=== PATIENT | male | born 1935 | race Caucasian/White ===

== ENCOUNTER 2016-06-14 21:08 | Inpatient (IN) | payer OTHER ==
[~2016-06-14] VITALS: Ht 162.6 cm; Wt 79.4 kg
--- NOTE | 2016-06-14 21:19 | NUR ---
Informed waiting has been performed.
--- NOTE | 2016-06-14 21:19 | NUR ---
TRIAGE: PT TO ER WITH AND SON C/C L ARM PAIN X 1 HR. PT WITH HX DEMENTIA. ANSWERS MOST QUESTIONS. STATES HE WAS TRYING TO GET INTO BED WHEN THE PAIN STARTED. PT REQUIRED ASSISTANCE GETTING OUT OF CAR INTO W/C. PT WAS INCONTINENT OF URINE IN HOUSE PRIOR TO LEAVING, STATES "THAT HAPPENS LATELY". SON WAS CONCERNED ABOUT PATIENT HAVING A STROKE. HAND GRASP EQUAL, SMILE EQUAL. PT COMPLAINS ONLY OF L SHOULDER PAIN. PT IS SQUIRMING AND MOANING IN TRIAGE CHAIR.
--- NOTE | 2016-06-14 21:28 | ED UPPER/LOWER EXTREMITY COMPL ---
History of Present Illness General Chief Complaint: General Adult Stated Complaint: PT LEFT ARM IS HAVING PAIN Source: patient, family, old records Exam Limitations: dementia Vital Signs & Intake/Output Vital Signs & Intake/Output Vital Signs Date Time Temp Pulse Resp B/P Pulse O2 O2 Flow FiO2 Ox Delivery Rate 06/15 0018 116 18 134/82 95 Room Air 06/14 2333 97.9 107 18 131/75 96 Room Air 06/14 2113 97.9 103 24 139/85 96 Room Air ED Intake and Output 06/15 0000 06/14 1200 Intake Total 0 Output Total Balance 0 Intake, Oral 0 Patient 175 lb Weight Allergies Coded Allergies: No Known Allergies (06/14/16) Triage Note: TRIAGE: PT TO ER WITH AND SON C/C L ARM PAIN X 1 HR. PT WITH HX DEMENTIA. ANSWERS MOST QUESTIONS. STATES HE WAS TRYING TO GET INTO BED WHEN THE PAIN STARTED. PT REQUIRED ASSISTANCE GETTING OUT OF CAR INTO W/C. PT WAS INCONTINENT OF URINE IN HOUSE PRIOR TO LEAVING, STATES "THAT HAPPENS LATELY". SON WAS CONCERNED ABOUT PATIENT HAVING A STROKE. HAND GRASP EQUAL, SMILE EQUAL. PT COMPLAINS ONLY OF L SHOULDER PAIN. PT IS SQUIRMING AND MOANING IN TRIAGE CHAIR. Triage Nurses Notes Reviewed? yes Onset: Abrupt Duration: hour(s): (1), constant Timing: recent history Severity: moderate Severity Numbers: 6 Pain/Injury Location: Left: Shoulder. Method of Injury: unknown Modifying Factors: Improves With: rest. Worsens With: movement. Associated Symptoms: none HPI: 81-year-old male with history of dementia hypertension presents to emergency room with family planning of left shoulder pain that is worse with movement for the past 1 hour. The family denies any known specific injury or trauma. They state that he has appeared lightheaded today on arrival the patient is complaining of pain however is not taken anything for his symptoms. They deny noting any rashes to his skin or swelling to his arm. He denies any neck back chest or abdominal pain no shortness of breath. No history of similar symptoms in the past. He denies any elbow wrist or hand pain no difficulty with range of motion of his elbow wrist or hand. There is been no change in his mental status. (KAY HULL,CINDY) Past History Travel History Traveled to [place] past 21 day No Medical History Any Pertinent Medical History? 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 No (CINDY STOCK) Review of Systems Review of Systems Constitutional: Reports: see HPI. All Other Systems: Reviewed and Negative Comments Review of systems: See HPI, All other systems negative. Constitutional, no chills no fever, no malaise HEENT: no sore throat no congestion Cardiovascular: No chest pain , no palpitation Skin, no rashes, no change in skin Respiratory: No dyspnea no cough no sputum GI: No nausea no vomiting, no diarrhea, : No dysuria No hematuria, no frequency, no discharge Muscle skeletal: joint pain, no joint swelling, no back pain Neurologic: No numbness no headache Psych: No stress no anxiety no depression,. Heme/endocrine: No bruising no bleeding Immunology: No lymphadenopathy (CINDY STOCK) Physical Exam Physical Exam General Appearance: well developed/nourished, alert, anxious Comments: Well-developed well-nourished person in no acute distress HEENT: Normal EENT exam; PERRL, EOMI. HEAD is atraumatic. moist mucous membranes. Neck: Supple, no lymphadenopathy, normal range of motion Back: Nontender, no CVA tenderness. Full range of motion Cardiovascular: Irregular rate and rhythm no murmurs rubs Respiratory: Chest nontender.There were no bony deformities, no asymmetry. No respiratory distress. Patient speaking in full complete sentences. Breath sounds clear to auscultation bilaterally: NO W/R/R Abdomen: Soft, nontender nondistended, no appreciable organomegaly. Normal bowel sounds. No rebound/guarding, No appreciable enlargement of the abdominal aorta, No ascites. Rectal: Nontender. Heme negative stool. No mass/hemorrhoid, no fissure. Shoulder: Atraumatic/Stable. Abdomen range of motion secondary to pain no ecchymosis no obvious deformity Elbow: Atraumatic/stable. FROM. No laxity Upper arm/Forearm: Atraumatic. Nontender. 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 Skin intact. FROM Pulses: Normal/equal radial pulses bilaterally. Brisk cap refill Lower Extremity: No edema, full range of motion of extremities, normal and equal pulses bilaterally, 5 out of 5 strength noted to bilateral lower extremities Neuro: Alert oriented x3, motor sensory normal, There were no obvious focal neurologic abnormalities. Skin: No appreciable rash on exposed skin, skin is warm and dry. Psych: Mood and affect is normal, memory and judgment is normal. (KAY HULL,CINDY) Progress Differential Diagnosis: contusion, dislocation, DVT, gout, sprain, tendon injury , AMI, NEW ONSET AFIB Plan of Care: Orders Procedure Date/time Status Regular Diet 06/15 B Active Patient Data 06/14 2331 Active OXYGEN SETUP (GEN) 06/14 2329 Active Saline Lock 06/14 2329 Active Admit to inpatient 06/14 2329 Active Vital Signs 06/14 2329 Active Activity/Ambulation 06/14 2329 Active Code Status 06/14 2329 Active Add-on Test (ER Only) 06/14 230 Active PARTIAL THROMBOPLASTIN TIME 06/14 2199 Complete Saline Lock 06/14 2154 Active Telemetry/Medical Billing Manager 06/14 2154 Active PROTHROMBIN TIME 06/14 2146 Complete TROPONIN LEVEL 06/14 2132 Complete COMPREHENSIVE METABOLIC PANEL 06/14 2132 Complete CBC WITHOUT DIFFERENTIAL 06/14 2132 Complete EKG 06/14 2132 Active Current Medications Sig/Eagle Start time Last Medication Dose Stop Time Status Admin Heparin Sodium 25,000 UNIT ONCE ONE 06/14 2329 CAN (Porcine) 06/14 2330 (Heparin) Sodium Chloride 500 ML Laboratory Tests 06/14/162199: Anion Gap 11, Estimated GFR > 60, BUN/Creatinine Ratio 25.6 H, Glucose 106 H, Calcium 9.9, Total Bilirubin 0.4, AST 18, ALT 32, Alkaline Phosphatase 98, Troponin I < 0.01, Total Protein 7.4, Albumin 3.7, Globulin 3.7, Albumin/ Globulin Ratio 1.0 L, PT 12.9 H, INR 1.23 H, APTT 32, CBC w Diff NO MAN DIFF REQ, RBC 4.90, MCV 87.3, MCH 29.0, RDW 13.6, MPV 9.9, Gran % 70.2, Lymphocytes % 16.1 L, Monocytes % 11.2 H, Eosinophils % 2.3, Basophils % 0.2, Absolute Granulocytes 6.6 H, Absolute Lymphocytes 1.5, Absolute Monocytes 1.1 H, Absolute Eosinophils 0.2, Absolute Basophils 0, PUBS MCHC 33.2 Labs ordered, patient medicated with morphine 4 MG IM, CASE AND EKG REVIEWED WITH DR GIL PT NOTED TO BE IN AFIB, NO PREVIOUS EKG. patient's denies cardiac history. No history of A. fib in the past she's never been seen by cardiology Case and labs reviewed with Dr. Rowland advised heparin will admit to his service. I discussed the patient's plan of care all of his lab results and x-ray findings (KAY HULL,CINDY) Diagnostic Imaging: Viewed by Me: Radiology Read. Discussed w/RAD: Radiology Read. Radiology Impression: PATIENT: BHUMIKA JORDAN PRESENT AGE: 81 PATIENT ACCOUNT NO: [id number] : 33 LOCATION: [facility] ORDERING PHYSICIAN: CINDY HULL SERVICE DATE: 06/14/16 EXAM TYPE: RAD - XRY-CHEST XRAY, ONE VIEW ONLY; XRY-SHOULDER COMPLETE-LEFT EXAMINATION: AP VIEW OF THE CHEST AND 3 VIEWS OF THE LEFT SHOULDER CLINICAL INFORMATION: Chest pain COMPARISON: None available FINDINGS: Chest: Asymmetric elevation of the right hemidiaphragm. Low lung volumes. Central vascular congestion without overt edema. The cardiac mediastinal silhouette is enlarged and limitedly assessed secondary to low lung volumes and AP technique. There are no acute osseous findings. Left shoulder: No fracture. Humeral head is high riding suggesting chronic rotator cuff injury. Glenohumeral alignment is otherwise maintained. Acromioclavicular joint is intact. IMPRESSION: Chest: Low lung volumes and central vascular congestion. The cardiomediastinal silhouette is enlarged and limitedly assessed secondary to low lung volumes and AP technique. Left shoulder : No acute osseous findings. Evidence of chronic rotator cuff injury. DICTATED BY: MOE QUIGLEY MD DATE/TIME DICTATED:06/14/162301 TOOL PLANNER: MAICOL DATE/TIME TRANSCRIBED:06/14/162301 CONFIDENTIAL, DO NOT COPY WITHOUT APPROPRIATE AUTHORIZATION. <Electronically signed in Other Vendor System> SIGNED BY: MOE QUIGLEY MD 06/14/16 2301 Initial ED EKG: a. FIB AT 100, NO ACUTE st SEGMENT CHANGES, AXIS (CINDY STOCK) Departure Departure Time of Disposition: 2334 Disposition: STILL A PATIENT Condition: Stable Clinical Impression Primary Impression: New onset a-fib Secondary Impressions: Left shoulder strain Referrals: JEANETH TELLEZ,RAYMON (PCP/Family) Departure Forms: Customer Survey General Discharge Information Admission Note Spoke With: EL ROWLAND MD Documentation of Exam: Documentation of any treatments & extenuating circumstances including Concerns Regarding Discharge (functional status, medication knowledge or non-compliance, living conditions, etc.) that warrant an admission rather than observation: CARDIOLOGY EVAL, HEPARIN GTT, POSSIBLE RATE CONTROL, TREND LABS PREMATURE DISCHARGE WOULD BE MEDICALL YHARMFUL (CINDY STOCK) PA/GUN STOCK MAKER Co-Sign Statement Statement: ED Attending supervision documentation- x I saw and evaluated the patient. I have also reviewed all the pertinent lab results and diagnostic results. I agree with the findings and the plan of care as documented in the PA's/GUN STOCK MAKER's documentation. [] I have reviewed the ED Record and agree with the PA's/GUN STOCK MAKER's documentation. [] Additions or exceptions (if any) to the PAs/GUN STOCK MAKER's note and plan are summarized below: [] (LOUISE TELLEZ,SUPRIYA)
--- NOTE | 2016-06-14 21:44 | NUR ---
PT C/O PAIN. PT APPEARS UNCOMFORTBALE. PT MEDICATED WITH MORPHINE PER ORDER
--- NOTE | 2016-06-14 22:04 | NUR ---
BLOOD DRAWN AND SENT TO LAB SST, LAV, BLUE, BHAGAT
--- NOTE | 2016-06-14 22:05 | NUR ---
PT MEDICATED WITH 1 MG PER ORDER
[2016-06-14 22:11] LABS: ABSOLUTE BASOPHIL COUNT 0 /CUMM (0.0-0.2); ABSOLUTE EOSINOPHIL COUNT 0.2 /CUMM (0.0-0.7); ABSOLUTE GRANULOCYTE CT 6.6 /CUMM (1.4-6.5); ABSOLUTE LYMPH COUNT 1.5 /CUMM (1.2-3.4); ABSOLUTE MONOCYTE COUNT 1.1 /CUMM (0.10-0.60); BASOPHIL % 0.2 % (0.0-2.0); EOSINOPHIL % 2.3 % (0-5); GRANULOCYTE % 70.2 % (42.2-75.2); HEMATOCRIT 42.8 % (42-52); MEAN CORPUSCULAR HGB CONC 33.2 G/DL (33.0-37.0); MEAN CORPUSCULAR VOLUME 87.3 FL (80.0-94.0); MEAN PLATELET VOLUME 9.9 FL (7.4-10.4); PLATELET COUNT 181 /CUMM (130-400); RBC DISTRIBUTION WIDTH 13.6 % (11.5-14.5); WHITE BLOOD CELL COUNT 9.4 /CUMM (4.8-10.8)
[2016-06-14 22:16] LABS: PT 12.9 SEC (9.4-12.5)
--- NOTE | 2016-06-14 22:57 | NUR ---
PT APPEARS MORE COMFORTABLE. PT LETHARGIC. EASILY STIMULATED BY VERBAL STIMULATION. RESP UNLABORED. NO APPARENT DISTRESS
--- NOTE | 2016-06-14 23:09 | RADIOLOGY REPORT ---
EXAMINATION: AP VIEW OF THE CHEST AND 3 VIEWS OF THE LEFT SHOULDER CLINICAL INFORMATION: Chest pain COMPARISON: None available FINDINGS: Chest: Asymmetric elevation of the right hemidiaphragm. Low lung volumes. Central vascular congestion without overt edema. The cardiac mediastinal silhouette is enlarged and limitedly assessed secondary to low lung volumes and AP technique. There are no acute osseous findings. Left shoulder: No fracture. Humeral head is high riding suggesting chronic rotator cuff injury. Glenohumeral alignment is otherwise maintained. Acromioclavicular joint is intact. IMPRESSION: Chest: Low lung volumes and central vascular congestion. The cardiomediastinal silhouette is enlarged and limitedly assessed secondary to low lung volumes and AP technique. Left shoulder: No acute osseous findings. Evidence of chronic rotator cuff injury.
[2016-06-14 23:21] LABS: PTT 32 SEC (25-37)
--- NOTE | 2016-06-14 23:53 | History & Physical ---
See Addendum CEZAR LAZO MD 06/14/16 2970: General Information and HPI MD Statement: I have seen and personally examined BHUMIKA JORDAN and documented this H& P. The patient is a 81 year old M who presented with a patient stated chief complaint of [LEFT SHOULDER PAIN]. Source of Information: patient, family Exam Limitations: dementia History of Present Illness: 81-year-old male with PMH of hypertension, dementia, presented to ED for left shoulder pain. His was at bedside giving most of the history. He was in his normal state of health until 8pm on the day of admission. He was complaining of left arm and shoulder pain when he was trying to climb in bed. No recent trauma. He told his he needs to go to the hospital. He has no prior ED visits/ hospitalizations. He denied chest pain, lightheadedness, palpitations, shortness of breath. He has been told that he has a heart murmur but no further workup as he does not experience any symptoms. He has dry cough for a couple of weeks. His notes that he has been increasingly weak over the past month. No recent falls. He is supposed to ambulate with a cane, but he is not using it properly. The cane does not even touch the floor. He usually ambulates with assistance/ hanging on to something. He has scratch pan all over his body because he refuses to let his cleans him. He has been having difficulty sleeping, waking up a few times in the middle of the night. He is for the most part continent of urine. He is refusing to urinate in the diaper in the ED. Also refused to urinate into the bottle. He has been wetting his pants at the end of urination at home. Also have some episodes of stool incontinence. He lives with his and son. Allergies/Medications Allergies: Coded Allergies: No Known Allergies (06/14/16) Home Med list Amlodipine Besylate 10 MG TABLET 10 MG IN DAILY HIGH BLOOD PRESSURE (Reported ) Donepezil HCl 10 MG TABLET 10 MG PO DAILY DEMENTIA (Reported) Lisinopril 20 MG TABLET 20 MG PO DAILY HIGH BLOOD PRESSURE (Reported) Past History Travel History Traveled to [place] past 21 day No Medical History Neurological: dementia EENT: NONE Cardiovascular: hypertension, heart murmur Respiratory: NONE Gastrointestinal: NONE Hepatic: NONE Renal: NONE Musculoskeletal: NONE Psychiatric: NONE Endocrine: NONE Blood Disorders: NONE 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 Home Who Do You Live With? spouse, child Services at Home: None Smoking Status: Former Smoker ETOH Use: occasional use Illicit Drug Use: denies illicit drug use Functional Ability ADLs Independent: dressing, eating, toileting. Needs Assist: bathing. Ambulation: cane, with assistance IADLs Needs Assist: shopping, housework, finances, food prep, telephone, transportation, medication admin. Review of Systems Review of Systems Constitutional: Reports: weakness. Denies: chills, fever. EENTM: Denies: visual changes. Cardiovascular: Denies: chest pain, palpitations, syncope. Respiratory: Reports: cough. Denies: short of breath, sputum production. GI: Denies: abdominal pain, bloating, constipation, diarrhea. Genitourinary: Denies: dysuria. Exam & Diagnostic Data Last 24 Hrs of Vital Signs/I&O Vital Signs Date Time Temp Pulse Resp B/P Pulse O2 O2 Flow FiO2 Ox Delivery Rate 06/14 2333 97.9 107 18 131/75 96 Room Air 06/14 2113 97.9 103 24 139/85 96 Room Air Physical Exam General Appearance Alert, Cooperative, Mild Distress, oriented to person and place, not to time Skin scratch pan all over dry skin HEENT Atraumatic, PERRLA, EOMI, Mucous Membr. moist/pink, small cut on the chin from shaving Neck Supple, No JVD, +2 Carotid Pulse wo Bruit, No LAD Lymphatic Axillary nl, Cervical nl Cardiovascular tachycardic , grade 4/5 systolic murmur Lungs Clear to Auscultation, Normal Air Movement Abdomen Normal Bowel Sounds, Soft, No Tenderness Neurological Normal Speech Extremities limited passive and active ROM of left shoulder due to pain Vascular Normal Pulses Last 24 Hrs of Labs/Yamil: Laboratory Tests 06/14/16 2200: Anion Gap 11, Estimated GFR > 60, BUN/Creatinine Ratio 25.6 H, Glucose 106 H, Calcium 9.9, Total Bilirubin 0.4, AST 18, ALT 32, Alkaline Phosphatase 98, Troponin I < 0.01, Total Protein 7.4, Albumin 3.7, Globulin 3.7, Albumin/ Globulin Ratio 1.0 L, PT 12.9 H, INR 1.23 H, APTT 32, CBC w Diff NO MAN DIFF REQ, RBC 4.90, MCV 87.3, MCH 29.0, RDW 13.6, MPV 9.9, Gran % 70.2, Lymphocytes % 16.1 L, Monocytes % 11.2 H, Eosinophils % 2.3, Basophils % 0.2, Absolute Granulocytes 6.6 H, Absolute Lymphocytes 1.5, Absolute Monocytes 1.1 H, Absolute Eosinophils 0.2, Absolute Basophils 0, PUBS MCHC 33.2 Diagnostic Data EKG Results Rate 105, irregular, Qtc 471, atrial fibrillation? No obvous P waves CXR Results Low lung volumes and central vascular congestion. The cardiomediastinal silhouette is enlarged and limitedly assessed secondary to low lung volumes and AP technique. Other Results Left shoulder xray: No acute osseous findings. Evidence of chronic rotator cuff injury. Assessment/Plan Assessment: 81-year-old male with PMH of hypertension, dementia, presented to ED for left shoulder pain. No acute findings on left shoulder xray but atrial fibrillation noted on EKG. # New onset atrial fibrillation - IV heparin started in ED - Given 1 time 10 mg cardizem in ED * Admit to telemetry * Continue IV heparin * Start cardizem drip * Serial trop and EKG * Follow echocardiogram # Left shoulder pain - Given 1 X 4mg IV morphine in ed * PT/OT # Weakness, urinary incontinence * Follow UA , UC * Follow TSH # Hypertension * Continue lisinopril 20 and amlodipine 10 # Dementia * Continue donepezil 20 # Sleep * Melatonin or rozerem Diet: heart healthy DVT ppx: mech and pharm FULL CODE As Ranked By This Provider Problem List: 1. New onset a-fib Core Measures/Miscellaneous Acute Coronary Syndrome ACS Diagnosis: No Cerebrovascular Accident CVA/TIA Diagnosis: No Congestive Heart Failure CHF Diagnosis: No Venous Thromboembolism VTE Risk Factors: Acute medical illness, Age > 40 VTE Prophylaxis Ordered Inpt: Mech & Pharm No Mech VTE prophylaxis d/t: No contraindications No VTE Pharm Prophylaxis d/t: No contraindications VTE Diagnosis: No VTE Type: NONE VTE Confirmed by (Test): NONE Severe Sepsis Severe Sepsis Present: Yes Septic Shock Septic Shock Present: No Miscellaneous Documentation Attending Case Discussed With: Dr. 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 Monitor for signs of bleeding, given IV push cardizem with HR still elevated, will start cardizem at lowe rate. will check TSH, T4 levels, K and Mg and replete. CHADsVAsc score of 3 will anticoagulate. Will check BNP, Echocardiogram ordered. Will check UA, UC as has symptoms for uti. DVT ppx heparin gtt. Get records from pcp. NAVEEN DEAL MD 06/15/16 1154: Attending MD Review Statement Attending Statement Attending MD Statement: examined this patient, discuss w/resident/PA/CARE CLINICIAN, agreed w/resident/PA/CARE CLINICIAN, discussed with family, reviewed EMR data (avail), discussed with case mgmt, reviewed images, amended to note Attending Assessment/Plan: The patient is an 81-year-old male who comes to the emergency him for evaluation of left shoulder pain. A history is difficult to obtain, the patient has some dementia. He, however, denies any other symptoms or issues. In the emergency him, the patient was noted to be in atrial fibrillation of unclear duration. The patient is noted to the hospital for further evaluation of his chest/ shoulder discomfort and treatment and evaluation of his atrial fibrillation. Assessment: 1. Atrial fibrillation of unclear duration 2. Left shoulder discomfort, likely related to rotator cuff issues 3. Elevated proBNP with central vascular congestion noted on chest x-ray 4. Hypertension 5. Heart murmur 6. Dementia Recommendations: -The patient was seen and examined, the case case was reviewed, all available data was reviewed, and the case was discussed with the house staff. -Continue IV Cardizem for rate control and IV heparin for protection against cardial embolic events. -Once the patient's heart rate is stable and controlled over the next 24 hours, the IV Cardizem can be transitioned to by mouth. -Further discussions with the family about oral anticoagulation. For now, I would favor transitioning the patient to Eliquis 5 mg twice a day or Pradaxa 150 twice a day tomorrow for protection against cardioembolism. -Echocardiogram pending -Further plans after the above.
--- NOTE | 2016-06-15 00:25 | NUR ---
PT HR 110 AFIB. PT MEDICATED WITH 10 MG CARDIZEM PER ORDER
--- NOTE | 2016-06-15 00:31 | NUR ---
PT AWAKE. BASELINE CONFUSION ACCORDING . ORIENTED TO PERSON AND PLACE. RESP UNLABORED. RESP UNLABORED. SKIN WARM AND DRY. NO APPARENT DISTRESS, AT BEDSIDE.
--- NOTE | 2016-06-15 00:33 | NUR ---
HOUSE STAFF AT BEDSIDE
--- NOTE | 2016-06-15 00:42 | NUR ---
PT BED ASSIGNMENT 176-1
[2016-06-15] MEDS ORDERED: LISINOPRIL20 M1 PO (00:56)
[2016-06-15] MEDS ORDERED: DONEPEZIL HCL10 M1 PO (00:57)
[2016-06-15] MEDS ORDERED: AMLODIPINE BESY10 M1 PO (00:57)
[2016-06-15 01:39] VITALS: BP 114/80
--- NOTE | 2016-06-15 02:47 | NUR ---
PT ARRIVED TO FLOOR AT 0130 ACCOMPANIED BY . PT IS A/O X2 WITH BASELINE CONFUSION STATED BY . PT IS CALM AND COOPERATIVE WITH NO C/O OF PAIN. BP 118/80 HR 103 94% RA 98.6. HEPARIN GTT @ 26ML/HR. PT EVAL IS NEEDED STATED PT SEEMS MUCH WEAKER THAN NORMAL. ORIENTED TO ROOM, CALL BRIDGES WITHIN REACH, BED IN LOWEST POSITION AND SIDE RAILS UP. PT ON TELE, WILL CONTINUE TO MONITOR
[2016-06-15 08:31] LABS: PTT 71 SEC (25-37)
--- NOTE | 2016-06-15 08:38 | PN- Housestaff ---
Subjective Follow-up For: Paroxysmal atrial fibrillation Left shoulder pain Complaints: complaining of left shoulder pain 11/26 Tele-Events Since Last Visit: Patient remained in atrial fibrillation with a rate of 80 -100 all overnight Subjective: Patient is seen and examined at the bedside. He was having no any active complaints except pain in the left shoulder. During examination he does not allowed to move his shoulder because of the pain. He denies of any nausea, vomiting, chest pain, bleeding from any site of his body. Review of Systems Constitutional: Denies: no symptoms. EENTM: Denies: no symptoms. Cardiovascular: Denies: no symptoms. Respiratory: Denies: no symptoms. Gastrointestinal: Denies: no symptoms. Genitourinary: Denies: no symptoms. Musculoskeletal: Reports: joint pain (left shoulder). Skin: Denies: no symptoms. Neurological/Psychological: Reports: dementia. Objective Last 24 Hrs of Vital Signs/I&O Vital Signs Date Time Temp Pulse Resp B/P Pulse O2 O2 Flow FiO2 Ox Delivery Rate 06/15 1500 98.6 66 20 96/66 95 Room Air 06/15 0949 80 110/80 06/15 0949 80 110/80 06/15 0854 97.7 80 20 110/80 94 Room Air 06/15 0139 98.6 115 20 114/80 94 Room Air 06/15 0108 99.3 102 20 119/72 95 Room Air 06/15 0018 116 18 134/82 95 Room Air 06/14 2333 97.9 107 18 131/75 96 Room Air 06/14 2113 97.9 103 24 139/85 96 Room Air Intake & Output 06/15 1600 06/15 0800 06/15 0000 Intake Total 445.5 480 0 Output Total Balance 445.5 480 0 Intake, IV 245.5 180 Intake, Oral 200 300 0 Number 0 Bowel Movements Patient 79.37 kg 79.379 kg Weight Physical Exam General Appearance: Alert, Cooperative, No Acute Distress Skin: No Rashes, No Breakdown HEENT: Atraumatic, PERRLA, EOMI Neck: Supple, No JVD Cardiovascular: irregular Lungs: mild basilar crackles Abdomen: Soft, No Tenderness Neurological: Normal Speech Extremities: No Clubbing, No Cyanosis, No Edema, Normal Pulses Vascular: Normal Pulses Assessment/Plan Assessment: Patient is an 81-year-old male with significant past medical history of dementia , hypertension, presented to the ED with left shoulder pain. History was taken from the as the patient is having baseline dementia. Vital signs -temperature 98.6, pulse 66, respiration 20, blood pressure 96/66, SPO2 95% Pertinent labs - UA -Hazy, nitrite -positive, leuccocyte esterase -mod, WBC -50-75, Hb -trace/ lysed Problem list - Paroxysmal/new onset atrial fibrillation of unclear duration Dementia Hypertension UTI Plan - * Serial Troponins were negative and EKG showed atrial fibrillation * We'll continue patient on the heparin drip * We will also watch for the bleeding * We will continue patient on the Cardizem drip * We will watch for the heart rate and the blood pressure * According to Dr. Long, we can change IV Cardizem to oral Cardizem and think about Eliquis/Pradaxa tmr * We gave pain medication but the pain in the left shoulder including Morphine/ Dilaudid * We will continue lisinopril/amlodipine/donepezil/melatonin * Please follow the cardiology recommendations * Please follow-up with the urine culture * Diet-heart healthy diet * DVT prophylaxis-ALP S/Heparin * CODE STATUS-full code Problem List: 1. New onset a-fib 2. Left shoulder strain 3. Hypertension 4. Dementia 5. UTI (urinary tract infection) Pain Ratin Pain Location: Left shoulder Pain Goal: Remain pain free Pain Plan: [id number] Tomorrow's Labs & Rationales: nothing
[2016-06-15 08:54] VITALS: BP 110/80
--- NOTE | 2016-06-15 14:43 | Discharge Summary ---
See Addendum Visit Information Visit Dates Admission Date: 06/14/16 Discharge Date: 06/18/2016 Hospital Course Course Attending Physician: JANETT TELLEZ,EL Primary Care Physician: JEANETH TELLEZ,[facility] Course: 81-year-old male with PMH of hypertension, dementia, presented to ED for left shoulder pain. He was in his normal state of health until 8pm on the day of admission. He was complaining of left arm and shoulder pain when he was trying to climb in bed. No recent trauma. He told his he needs to go to the hospital. He has no prior ED visits/ hospitalizations. He denied chest pain, lightheadedness, palpitations, shortness of breath. He has been told that he has a heart murmur but no further workup as he does not experience any symptoms. In the ED: Laboratory Tests 06/15/16 0624: Urine Color YEL, Urine Clarity HAZY H, Urine pH 6.0, Ur Specific [place] 1.020, Urine Protein NEG, Urine Ketones NEG, Urine Nitrite POS H, Urine Bilirubin NEG, Urine Urobilinogen 0.2, Ur Leukocyte Esterase MOD H, Ur Microscopic SEDIMENT EXAMINED, Urine RBC 1-3, Urine WBC 50-75 H, Ur Epithelial Cells RARE, Urine Hemoglobin TRACE-LYSED H, Urine Glucose NEG 06/15/16 0610: Troponin I < 0.01, APTT 71 H 06/14/16 2200: Anion Gap 11, Estimated GFR > 60, BUN/Creatinine Ratio 25.6 H, Glucose 106 H, Calcium 9.9, Magnesium 2.1, Total Bilirubin 0.4, AST 18, ALT 32, Alkaline Phosphatase 98, Troponin I < 0.01, Owm-Z-Hcxioszquon Pept 422 H, Total Protein 7.4, Albumin 3.7, Globulin 3.7, Albumin/Globulin Ratio 1.0 L, TSH 1.510, Free T4 1.07, PT 12.9 H, INR 1.23 H, APTT 32, CBC w Diff NO MAN DIFF REQ, RBC 4.90, MCV 87.3, MCH 29.0, RDW 13.6, MPV 9.9, Gran % 70.2, Lymphocytes % 16.1 L, Monocytes % 11.2 H, Eosinophils % 2.3, Basophils % 0.2, Absolute Granulocytes 6.6 H, Absolute Lymphocytes 1.5, Absolute Monocytes 1.1 H, Absolute Eosinophils 0.2, Absolute Basophils 0, PUBS MCHC 33.2 Microbiology 06/15 0624 URINE ROUT: Urine Culture - RECD Current Medications Sig/Eagle Start time Last Medication Dose Stop Time Status Admin Multi-Ingred Cream/ 1 DARNELL TID 06/15 1600 UNVr Lotion/Oil/Oint (Calamine Lotion) Acetaminophen 1,000 MG Q6P PRN 06/15 0115 AC (Ofirmev) Morphine Sulfate 2 MG Q8P PRN 06/15 0115 AC (Morphine) Heparin Sodium 25,000 UNIT ONCE ONE 06/14 233 CAN (Porcine) 06/14 233 (Heparin) Sodium Chloride 500 ML Vital Signs Date Time Temp Pulse Resp B/P Pulse O2 O2 Flow FiO2 Ox Delivery Rate 06/15 0949 80 110/80 06/15 0949 80 110/80 06/15 0854 97.7 80 20 110/80 94 Room Air 06/15 0139 98.6 115 20 114/80 94 Room Air 06/15 0108 99.3 102 20 119/72 95 Room Air 06/15 0018 116 18 134/82 95 Room Air 06/14 2333 97.9 107 18 131/75 96 Room Air 06/14 2113 97.9 103 24 139/85 96 Room Air He was admitted to the tele floor for further management. Problem List: 1. Atrial fibrillation of unclear duration: He was started on a cardizem drip for rate control and heparin IV for anticoagulation. ECHO was ordered, results of which are still pending. He is to be transitioned to PO anticoagulation and rate control medications upon discharge. 2. Left shoulder discomfort, likely related to rotator cuff issues: XRay of the left shoulder did not show the presence of any fractures, only some chronic rotator cuff injury. Patient was maintained on Tylenol for pain management. 3. UTI with Enterobacter Cloacae: Patient was started on Ceftriaxone for 3 days and will be discharged home on PO Ciprofloxacin for 4 more days. 4. Hypertension: Continued on home Lisinopril and Amlodipine 5. Dementia: Continued on home Donezepil. 6. DVT PPx: IV Heparin 7. Code Status: Full Code Complications: None Allergies: Coded Allergies: No Known Allergies (06/14/16) Significant Procedures: As above Pertinent Lab Results: Vital Signs Date Time Temp Pulse Resp B/P Pulse O2 O2 Flow FiO2 Ox Delivery Rate 06/15 0949 80 110/80 06/15 0949 80 110/80 06/15 0854 97.7 80 20 110/80 94 Room Air 06/15 0139 98.6 115 20 114/80 94 Room Air 06/15 0108 99.3 102 20 119/72 95 Room Air 06/15 0018 116 18 134/82 95 Room Air 06/14 2333 97.9 107 18 131/75 96 Room Air 06/14 2113 97.9 103 24 139/85 96 Room Air Laboratory Tests 06/15/16 0624: Urine Color YEL, Urine Clarity HAZY H, Urine pH 6.0, Ur Specific [place] 1.020, Urine Protein NEG, Urine Ketones NEG, Urine Nitrite POS H, Urine Bilirubin NEG, Urine Urobilinogen 0.2, Ur Leukocyte Esterase MOD H, Ur Microscopic SEDIMENT EXAMINED, Urine RBC 1-3, Urine WBC 50-75 H, Ur Epithelial Cells RARE, Urine Hemoglobin TRACE-LYSED H, Urine Glucose NEG 06/15/16 0610: Troponin I < 0.01, APTT 71 H 06/14/16 2200: Anion Gap 11, Estimated GFR > 60, BUN/Creatinine Ratio 25.6 H, Glucose 106 H, Calcium 9.9, Magnesium 2.1, Total Bilirubin 0.4, AST 18, ALT 32, Alkaline Phosphatase 98, Troponin I < 0.01, Fan-X-Hmoettzvqfq Pept 422 H, Total Protein 7.4, Albumin 3.7, Globulin 3.7, Albumin/Globulin Ratio 1.0 L, TSH 1.510, Free T4 1.07, PT 12.9 H, INR 1.23 H, APTT 32, CBC w Diff NO MAN DIFF REQ, RBC 4.90, MCV 87.3, MCH 29.0, RDW 13.6, MPV 9.9, Gran % 70.2, Lymphocytes % 16.1 L, Monocytes % 11.2 H, Eosinophils % 2.3, Basophils % 0.2, Absolute Granulocytes 6.6 H, Absolute Lymphocytes 1.5, Absolute Monocytes 1.1 H, Absolute Eosinophils 0.2, Absolute Basophils 0, PUBS MCHC 33.2 Microbiology Date/Time Procedure - Status Source Growth 06/15 623 Urine Culture - RECD URINE ROUT Orders Procedure Date/time Status Regular Diet 06/15 B Active PARTIAL THROMBOPLASTIN TIME 06/15 1900 Active TROPONIN LEVEL 06/15 0600 Complete PARTIAL THROMBOPLASTIN TIME 06/15 0600 Complete Teach/Educate 06/15 218 Active Nutritional Intake, Monitor 06/15 218 Active Isolation 06/15 0219 Active Intake & Output 06/15 218 Complete Patient Care Conference 06/15 0219 Active Activity/Ambulation 06/15 218 Active CULTURE,URINE 06/15 0115 Active URINALYSIS 06/15 0115 Complete Pathway - chart 06/15 0109 Active Pathway - chart 06/15 0102 Active Patient Data 06/15 0102 Active Code Status 06/15 0102 Active PT Evaluate & Treat 06/15 UNK Active Pathway - chart 06/15 UNK Active House Staff 06/15 UNK Active Lab Add-on Test 06/15 UNK Active Vital Signs 06/15 UNK Complete Telemetry/National Insurance Officer 06/15 UNK Complete EKG 06/15 UNK Active ECHOCARDIOGRAM 06/15 UNK Active Patient Data 06/14 2332 Active OXYGEN SETUP (GEN) 06/14 2330 Active Saline Lock 06/14 2330 Active Admit to inpatient 06/14 2330 Active Vital Signs 06/14 2330 Active Activity/Ambulation 06/14 2330 Complete Code Status 06/14 2330 Complete Add-on Test (ER Only) 06/14 2305 Active Intake & Output 06/14 2258 Active THYROID STIMULATING HORMONE 06/14 2200 Complete PARTIAL THROMBOPLASTIN TIME 06/14 2200 Complete MAGNESIUM 06/14 2200 Complete FREE T4 06/14 2200 Complete B-TYPE NATRIURETIC PEP (BNP) 06/14 220 Complete Saline Lock 06/14 215 Active Telemetry/National Insurance Officer 06/14 215 Active PROTHROMBIN TIME 06/14 2147 Complete TROPONIN LEVEL 06/14 2132 Complete COMPREHENSIVE METABOLIC PANEL 06/14 2132 Complete CBC WITHOUT DIFFERENTIAL 06/14 2132 Complete EKG 06/14 2132 Active Disposition Summary Disposition Principal Diagnosis: Atrial fibrillation of unclear duration Additional Diagnosis: Left shoulder discomfort, likely related to rotator cuff issue Elevated proBNP with central vascular congestion noted on chest x-ray Hypertension Heart murmur Dementia Discharge Disposition: SNF Discharge Instructions General Discharge Information Code Status: Full Code Patient's Diet: Heart Healthy Patient's Activity: As tolerated. Follow-Up Instructions/Appts: Please make an appointment to see your: 1) PCP within one week from discharge 2) Your Podiatric Assistant within one week from discharge. Medications at Discharge Discharge Medications: Continue taking these medications: Lisinopril (Lisinopril) 20 MG TABLET 20 Milligram ORAL DAILY Qty = 90 Donepezil HCl (Donepezil HCl) 10 MG TABLET 10 Milligram ORAL DAILY Qty = 90 Amlodipine Besylate (Amlodipine Besylate) 10 MG TABLET 10 Milligram RECTALLY DAILY Qty = 90 Start taking the following new medications: Dabigatran Etexilate Mesylate (Pradaxa 150 MG) 150 MG CAPSULE 11 Tablet ORAL TWICE DAILY Days = 30 No Refills Diltiazem Cd (Diltiazem ER) 120 MG CAP.ER.DEG 1 Tablet ORAL DAILY Days = 60 No Refills Ciprofloxacin HCl (Cipro) 500 MG TABLET 1 Tablet ORAL TWICE DAILY Days = 4 No Refills Copies To: Vincent DEAL MD
--- NOTE | 2016-06-15 14:54 | Patient Discharge Instructions ---
Discharge Instructions General Discharge Information You were seen/treated for: New onset Atrial Fibrillation Special Instructions: Please make an appointment to see: 1) Your PCP within one week from discharge and consider urology evaluation for possible BPH. 2) Your senior oracle applications developer within one week from discharge. Diet Recommended Diet: Heart Healthy Activity Activity Self Limited: Yes Acute Coronary Syndrome Inclusion Criteria At DC or during hospital stay patient has or had the following: ACS DIAGNOSIS No Discharge Core Measures Meds if any: Prescribed or Continued at Discharge Meds if any: NOT Prescribed or Continued at Discharge Congestive Heart Failure Inclusion Criteria At DC or during hospital stay patient has or had the following: CHF DIAGNOSIS No Discharge Core Measures Meds if any: Prescribed or Continued at Discharge Meds if any: NOT Prescribed or Continued at Discharge Cerebrovascular accident Inclusion Criteria At DC or during hospital stay patient has or had the following: CVA/TIA Diagnosis No Discharge Core Measures Meds if any: Prescribed or Continued at Discharge Meds if any: NOT Prescribed or Continued at Discharge Venous thromboembolism Inclusion Criteria VTE Diagnosis No VTE Type NONE VTE Confirmed by (Test) NONE Discharge Core Measures - Per Current guidelines, there needs to be overlap - treatment for the first 5 days of Warfarin therapy. - If discharged on Warfarin prior to 5 days of - overlap therapy, the patient will need to be - assessed for post discharge needs including - *Post discharge parental anticoagulation - *Warfarin and/or parental anticoagulation education - *Follow up date to check INR post discharge At least 5 days overlap therapy as Inpatient No Meds if any: Prescribed or Continued at Discharge Note: Overlap Therapy is Warfarin and Anticoagulant Meds if any: NOT Prescribed or Continued at Discharge
[2016-06-15 15:00] VITALS: BP 96/66
--- NOTE | 2016-06-15 20:17 | ECHOCARDIOGRAM REPORT ---
BHUMIKA JORDAN Age: 81 : 1935 Gender: M Exam Date: 06/15/2016 11:30 Exam Location: [address] Ht (in): 64 Wt (lb): 175 BSA: 1.92 BP: 114 / 80 Ordering Physician: ROSALVA VALLES MD Referring Physician: ROSALVA VALLES MD Technologist: Chas Ortiz [facility] Room Number: [id number] Indications: AFIB/FLUTTER Rhythm: Atrial fibrillation Technical Quality: Fair FINDINGS Left Ventricle Normal size left ventricle. No obvious regional wall motion abnormalities. Normal left ventricular ejection fraction estimated at 55-60%. Right Ventricle Right ventricle at upper limits of normal. Right Atrium Normal right atrial size. Left Atrium Mild left atrial dilatation. Mitral Valve Mitral valve thickened. Trace to mild mitral regurgitation. Aortic Valve Trileaflet aortic valve. Diffuse thickening of the aortic valve cusps with reduced excursion. Severe aortic stenosis. Trace to mild aortic regurgitation. Tricuspid Valve Tricuspid valve not well visualized, grossly normal. Mild tricuspid regurgitation. Right ventricular systolic pressure estimated at 40 mmHg. Pulmonic Valve Pulmonic valve not well visualized, grossly normal. Mild pulmonic regurgitation. Pericardium Minimal pericardial effusion (normal variant). Great Vessels Mildly dilated proximal ascending aorta (tube). CONCLUSIONS 1. Significant fibrocalcific degeneration is present in the aortic valve with severe valvular stenosis (PG 70 mmHg; MG 40 mmHg; CHELSI 0.6 cn=m2) and minimal to mild aortic insufficiency with mild dilatation of the ascending aorta. 2. Mitral leaflet thickening is present with mild mitral insufficiency and mild left atrial enlargement. 3. A physiologic pericardial effusion is present. 4. The left ventricular chamber size and systolic function are normal with no obvious resting wall motion abnormalities. 5. The right heart chambers are upper normal in size with mild tricuspid and pulmonic insufficiency and no significant pulmonary hypertension. 6. This was a technically difficult exmination. 7. There is no prior study available for comparison. Aleisha Long M.D. (Electronically Signed) Final Date: 15 June 2016 20:17 MEASUREMENTS (Male / Female) Normal Values 2D ECHO LV Diastolic Diameter PLAX 4.5 cm 4.2 - 5.9 / 3.9 - 5.3 cm LV Systolic Diameter PLAX 2.8 cm 2.1 - 4.0 cm LV Fractional Shortening PLAX 37.8 % 25 - 46 % LV Ejection Fraction 2D Teich 68.0 % IVS Diastolic Thickness 1.0 cm LVPW Diastolic Thickness 1.0 cm LV Relative Wall Thickness 0.4 RV Internal Dim ED PLAX 3.6 cm 1.9 - 3.8 cm LVOT Diameter 2.0 cm Aortic Root Diameter 3.4 cm LA Systolic Diameter LX 4.1 cm 3.0 - 4.0 / 2.7 - 3.8 cm Ascending Aorta Diameter 4.2 cm DOPPLER AV Peak Velocity 423.0 cm/s AV Peak Gradient 71.6 mmHg AV Mean Velocity 295.0 cm/s AV Mean Gradient 39.0 mmHg AV Velocity Time Integral 97.8 cm LVOT Peak Velocity 83.7 cm/s LVOT Peak Gradient 2.8 mmHg LVOT Mean Velocity 57.9 cm/s LVOT Mean Gradient 2.0 mmHg LVOT Velocity Time Integral 19.3 cm LVOT Stroke Volume 60.6 cm AV Area Cont Eq vti 0.6 cm AV Area Cont Eq pk 0.6 cm MV Peak Velocity 153.0 cm/s MV Peak Gradient 9.4 mmHg MV Mean Velocity 67.0 cm/s MV Mean Gradient 2.0 mmHg Mitral E Point Velocity 105.0 cm/s MV PHT Velocity 155.0 cm/s MV Deceleration [place] 785.0 cm/s MV Pressure Half Time 59.2 ms MV Area PHT 3.7 cm MV Deceleration Time 292.0 ms TR Peak Velocity 299.0 cm/s TR Peak Gradient 35.8 mmHg Right Atrial Pressure 5.0 mmHg Pulmonary Artery Systolic Pressu 40.8 mmHg Right Ventricular Systolic Press 40.8 mmHg PV Peak Velocity 82.7 cm/s PV Peak Gradient 2.7 mmHg PV Mean Velocity 60.8 cm/s PV Mean Gradient 2.0 mmHg PV Velocity Time Integral 19.7 cm
--- NOTE | 2016-06-15 20:23 | PN- Cardiology ---
Subjective Subjective: Stable; complains of left shoulder discomfort. Denies any other symptoms. Objective Vital Signs and I&Os Vital Signs Date Time Temp Pulse Resp B/P Pulse O2 O2 Flow FiO2 Ox Delivery Rate 06/15 1500 98.6 66 20 96/66 95 Room Air 06/15 0949 80 110/80 06/15 0949 80 110/80 06/15 0854 97.7 80 20 110/80 94 Room Air 06/15 0139 98.6 115 20 114/80 94 Room Air 06/15 0108 99.3 102 20 119/72 95 Room Air 06/15 0018 116 18 134/82 95 Room Air 06/14 2333 97.9 107 18 131/75 96 Room Air 06/14 2113 97.9 103 24 139/85 96 Room Air Intake & Output 06/15 1600 06/15 0800 06/15 0000 06/14 1600 06/14 0800 06/14 0000 Intake Total 445.5 480 0 Output Total Balance 445.5 480 0 Intake, IV 245.5 180 Intake, Oral 200 300 0 Number 0 Bowel Movements Patient 175 lb 175 lb Weight Physical Exam: General Appearance Alert, Cooperative, Mild Distress, oriented to person and place, not to time Skin Normal HEENT Atraumatic, PERRLA, EOMI, Mucous Membr. moist/pink, small cut on the chin from shaving Neck Supple, No JVD, +2 Carotid Pulse ; bilateral bruits noted Lymphatic Axillary nl, Cervical nl Cardiovascular tachycardic , irregular rhythm; 3/6 JEN of at least moderate aortic stenosis Lungs Clear to Auscultation, Normal Air Movement Abdomen Normal Bowel Sounds, Soft, No Tenderness Neurological Nonfocal Extremities limited passive and active ROM of left shoulder due to pain Vascular Normal Pulses Current Medications: Current Medications Sig/Eagle Start time Last Medication Dose Route Stop Time Status Admin Acetaminophen 650 MG Q6P PRN 06/15 0115 AC 06/15 PO 0950 Acetaminophen 1,000 MG Q6P PRN 06/15 011 AC IV Amlodipine Besylate 10 MG DAILY 06/15 1000 AC 06/15 PO 0949 Diltiazem HCl 125 MG Q24H 06/15 0145 AC 06/15 Sodium Chloride 100 ML IV 0206 Diltiazem HCl 10 MG ONCE ONE 06/15 0015 DC 06/15 IV PUSH 06/15 0016 0025 Diltiazem HCl 0 .STK-MED ONE 06/15 0012 DC .ROUTE Donepezil HCl 10 MG DAILY 06/15 1000 AC 06/15 PO 0949 Heparin Sodium 0 .STK-MED ONE 06/14 2358 DC (Porcine) .ROUTE Heparin Sodium 5,000 UNIT ONCE ONE 06/14 2330 DC 06/15 (Porcine) IV 06/14 2330 0006 Heparin Sodium 25,000 UNIT ONCE ONE 06/140 CAN (Porcine) IV 06/14 233 Sodium Chloride 500 ML Heparin Sodium/ 0 .STK-MED ONE 06/14 2359 DC Dextrose IV Heparin Sodium/ 25,000 UNIT Q24 06/14 2345 AC 06/15 Dextrose IV 1931 Dextrose/Water 500 ML Lisinopril 20 MG DAILY 06/15 1000 AC 06/15 PO 0949 Lorazepam 1 MG ONCE ONE 06/14 2199 DC 06/14 IV 06/14 Lorazepam 0 .STK-MED ONE 06/14 2159 DC .ROUTE Morphine Sulfate 2 MG Q8P PRN 06/15 0115 AC IV Morphine Sulfate 4 MG ONCE ONE 06/14 214 DC 06/14 IM 06/14 Morphine Sulfate 0 .STK-MED ONE 06/14 2140 DC .ROUTE Multi-Ingred Cream/ 1 DARNELL TID 06/15 1600 AC Lotion/Oil/Oint EXT Results Last 48 Hrs of Labs/Mics: Laboratory Tests 06/15/161924: APTT Pending 06/15/1624: Urine Color YEL, Urine Clarity HAZY H, Urine pH 6.0, Ur Specific [place] 1.020, Urine Protein NEG, Urine Ketones NEG, Urine Nitrite POS H, Urine Bilirubin NEG, Urine Urobilinogen 0.2, Ur Leukocyte Esterase MOD H, Ur Microscopic SEDIMENT EXAMINED, Urine RBC 1-3, Urine WBC 50-75 H, Ur Epithelial Cells RARE, Urine Hemoglobin TRACE-LYSED H, Urine Glucose NEG 06/15/16 0610: Troponin I < 0.01, APTT 71 H 06/14/162199: Anion Gap 11, Estimated GFR > 60, BUN/Creatinine Ratio 25.6 H, Glucose 106 H, Calcium 9.9, Magnesium 2.1, Total Bilirubin 0.4, AST 18, ALT 32, Alkaline Phosphatase 98, Troponin I < 0.01, Fft-E-Jsjpzsaukhx Pept 422 H, Total Protein 7.4, Albumin 3.7, Globulin 3.7, Albumin/Globulin Ratio 1.0 L, TSH 1.510, Free T4 1.07, PT 12.9 H, INR 1.23 H, APTT 32, CBC w Diff NO MAN DIFF REQ, RBC 4.90, MCV 87.3, MCH 29.0, RDW 13.6, MPV 9.9, Gran % 70.2, Lymphocytes % 16.1 L, Monocytes % 11.2 H, Eosinophils % 2.3, Basophils % 0.2, Absolute Granulocytes 6.6 H, Absolute Lymphocytes 1.5, Absolute Monocytes 1.1 H, Absolute Eosinophils 0.2, Absolute Basophils 0, PUBS MCHC 33.2 Assessment/Plan Assessment/Plan Assessment: 1. Atrial fibrillation of unclear duration 2. Left shoulder discomfort, likely related to rotator cuff issues 3. Elevated proBNP with central vascular congestion noted on chest x-ray 4. Hypertension 5. Heart murmur consistent with significant aortic stenosis. 6. Dementia Recommendations: - Continue IV cardizem and heparin for now. - Echocardiogram pending - Reassess in AM and, if stable, transition to oral cardizem and EARLENE (ELiquis 5 BID or Pradaxa 150 BID) - Discharge timing depending on course over the next 24-48 hours. - Outpatient followup with me post discharge. Continue telemetry? Yes
[2016-06-15 20:25] LABS: PTT 56 SEC (25-37)
[2016-06-15 23:00] VITALS: BP 110/62
[2016-06-16 02:40] LABS: ABSOLUTE BASOPHIL COUNT 0 /CUMM (0.0-0.2); ABSOLUTE EOSINOPHIL COUNT 0.1 /CUMM (0.0-0.7); ABSOLUTE GRANULOCYTE CT 6.5 /CUMM (1.4-6.5); ABSOLUTE LYMPH COUNT 1.9 /CUMM (1.2-3.4); ABSOLUTE MONOCYTE COUNT 1.2 /CUMM (0.10-0.60); BASOPHIL % 0.4 % (0.0-2.0); EOSINOPHIL % 1.4 % (0-5); GRANULOCYTE % 66.7 % (42.2-75.2); MEAN CORPUSCULAR HGB 29.2 PG (27.0-31.0); MEAN CORPUSCULAR HGB CONC 33.4 G/DL (33.0-37.0); MEAN CORPUSCULAR VOLUME 87.5 FL (80.0-94.0); MEAN PLATELET VOLUME 10.2 FL (7.4-10.4); PLATELET COUNT 175 /CUMM (130-400); RBC DISTRIBUTION WIDTH 13.2 % (11.5-14.5); RED BLOOD CELL CT 4.69 /CUMM (4.70-6.10); WHITE BLOOD CELL COUNT 9.8 /CUMM (4.8-10.8)
[2016-06-16 02:51] LABS: PTT 53 SEC (25-37)
[2016-06-16 08:13] VITALS: BP 118/76
--- NOTE | 2016-06-16 09:34 | PN- Housestaff ---
See Addendum Subjective Follow-up For: Paroxysmal atrial fibrillation Left shoulder pain Complaints: no complaints Tele-Events Since Last Visit: Patient has been having atrial fibrillation rhythm except at 12 AM and 2 AM this morning. Heart rate 79-128 Subjective: Patient was seen and examined this morning, he has his at the bedside. Patient denied any chest pain, left arm pain, shortness of breath, palpitation. reported that the patient is more confused than his baseline. Patient looked confused but not agitated with no acute distress. The patient has IV drip of heparin and Cardizem. Overnight events patient was very agitated to a level that required 3 doses of haloperidol and 1 dose of Zyprexa and possey restrain. Review of Systems Constitutional: Denies: no symptoms. Objective Last 24 Hrs of Vital Signs/I&O Vital Signs Date Time Temp Pulse Resp B/P Pulse O2 O2 Flow FiO2 Ox Delivery Rate 06/16 1104 112 118/76 06/16 1104 112 118/76 06/16 0813 98.4 112 20 118/76 92 Room Air 06/15 2300 98.0 82 20 110/62 93 Room Air Intake & Output 06/16 1600 06/16 0800 06/16 0000 Intake Total 306 452 Output Total 400 100 Balance -94 352 Intake, IV 256 212 Intake, Oral 50 240 Output, Urine 400 100 Physical Exam General Appearance: Alert, Cooperative, No Acute Distress Skin: No Rashes, No Breakdown, No Significant Lesion HEENT: Atraumatic, PERRLA, EOMI, Mucous Membr. moist/pink Cardiovascular: irrigular irrigular , 3/6 aortic stenosis Lungs: Clear to Auscultation, Normal Air Movement Abdomen: Normal Bowel Sounds, Soft, No Tenderness Neurological: Normal Speech, Strength at 5/5 X4 Ext, Normal Tone, Sensation Intact, Cranial Nerves 3-12 NL, Reflexes 2+ Extremities: No Clubbing, No Cyanosis, No Edema, Normal Pulses Assessment/Plan Assessment: Patient is an 81-year-old male with significant past medical history of dementia , hypertension, presented to the ED with left shoulder pain. History was taken from the as the patient is having baseline dementia. Vital signs -temperature 98.6, pulse 66, respiration 20, blood pressure 96/66, SPO2 95% Pertinent labs - UA -Hazy, nitrite -positive, leuccocyte esterase -mod, WBC -50-75, Hb -trace/ lysed Problem list - Paroxysmal/new onset atrial fibrillation of unclear duration Dementia Hypertension UTI Plan #Atrial fibrillation * Serial Troponins were negative and EKG showed atrial fibrillation * We will switch the patient to Pradaxa 150 mg BID at 10 PM today (given the patient's history of multiple falls, will start him on Pradaxa instead of Eliquis given the presence of reversal agent praxbind). Will continue patient on the heparin drip for now * Patient received first Cardizem by mouth dose of 120 mg at 2:30 PM, will DC Cardizem drip 1 hour later * Continue to follow cardiology recommendation #UTI * UA positive for urine nitrates and leukocyte Estrace * Urine culture positive for gram-negative rods * Patient has baseline of dementia and was very agitated last night to level that required 3 doses of haloperidol and 1 dose of Zyprexa in addition to possey restrain, his agitation and confusion can be attributed by UTI * Start ceftriaxone 1 mg IV daily for UTI DAY #1 #Left shoulder injury with evidence of chronic rotator cuff * Continue morphine 2 mg every 8 when necessary IV * Continue acetaminophen 1000 mg every 6 IV when necessary * Continue acetaminophen 650 every 6 when necessary by mouth -Continue lisinopril/amlodipine/donepezil/melatonin -Diet-heart healthy diet -DVT prophylaxis-ALP S/Heparin bdrip -CODE STATUS-full code Problem List: 1. UTI (urinary tract infection) 2. Dementia 3. Hypertension 4. Left shoulder strain 5. New onset a-fib Pain Ratin Pain Location: left shoulder Pain Goal: Pain 4 or less Pain Plan: see medication Tomorrow's Labs & Rationales: CBC, CMP
--- NOTE | 2016-06-16 10:24 | NUR ---
PHYSICAL THERAPY- ATTEMPTED TO SEE PT THIS DAY; PT AGITATED AND ESCALATING IN ROOM, YELLING AND COMBATIVE, ASSISTED NSG W/ POSITIONING AND ELE RESTRAINT FOR PT SAFETY. WILL DEFER P.T. AT THIS TIME AND FOLLOW APPROPRIATE.
[2016-06-16 10:29] LABS: PTT 67 SEC (25-37)
[2016-06-16 16:16] VITALS: BP 102/66
--- NOTE | 2016-06-16 22:02 | PN- Att Addend ---
Attending Addendum Attending Brief Note Laboratory Tests 06/16/16 0915: APTT 67 H 06/16/16 0230: APTT 53 H 06/16/16 0225: Anion Gap 9, Estimated GFR > 60, BUN/Creatinine Ratio 20.0, Magnesium 2.0, CBC w Diff NO MAN DIFF REQ, RBC 4.69 L, MCV 87.5, MCH 29.2, RDW 13.2, MPV 10.2, Gran % 66.7, Lymphocytes % 19.4 L, Monocytes % 12.1 H, Eosinophils % 1.4, Basophils % 0.4, Absolute Granulocytes 6.5, Absolute Lymphocytes 1.9, Absolute Monocytes 1.2 H, Absolute Eosinophils 0.1, Absolute Basophils 0, PUBS MCHC 33.4 Echo 1. Significant fibrocalcific degeneration is present in the aortic valve with severe valvular stenosis (PG 70 mmHg; MG 40 mmHg; CHELSI 0.6 cn=m2) and minimal to mild aortic insufficiency with mild dilatation of the ascending aorta. 2. Mitral leaflet thickening is present with mild mitral insufficiency and mild left atrial enlargement. 3. A physiologic pericardial effusion is present. 4. The left ventricular chamber size and systolic function are normal with no obvious resting wall motion abnormalities. 5. The right heart chambers are upper normal in size with mild tricuspid and pulmonic insufficiency and no significant pulmonary hypertension. 6. This was a technically difficult exmination. 7. There is no prior study available for comparison. Aleisha Long M.D. (Electronically Signed) Final Date: 15 June 2016 20:17 1. Atrial fibrillation of unclear duration 2. Left shoulder discomfort, likely related to rotator cuff issues, improved 3. Elevated proBNP with central vascular congestion noted on chest x-ray 4. Hypertension 5. Severe 6. Dementia 7. UTI Discussed with the patient's today. Discussed with the housestaff team. Will continue Abx tx for UTI given + UA/UCx with some delerium. Some of his agitation is likely due to just being in the hospital but UTI may contribute. His is staying with him now in his room which seems to keep him calm. D/C wrist restraints and allow his to stay with him as often as she would like. HR control is borderline. We have added oral Cardizem and will wean off the Cardizem gtt as tolerated. Echo as above confirms severe with normal EF. Will transition to oral AC. Favor Pradaxa in this patient given that Pradaxa is reversible. Discussed risk versus benefit of AC with his at length today including stroke versus bleeding risk. Hg grossly stable. We have stopped his Norvasc given need for Cardizem. I am also going to stop his Lisinopril given the borderline BP with and normal LVEF. Continue on telemetry. PT evaluation. Not ready for discharge at this time. Greg Martini MD [facility]
[2016-06-16 23:12] VITALS: BP 106/72
[2016-06-17 08:02] VITALS: BP 108/60
[2016-06-17 08:28] LABS: ABSOLUTE BASOPHIL COUNT 0 /CUMM (0.0-0.2); ABSOLUTE EOSINOPHIL COUNT 0.2 /CUMM (0.0-0.7); ABSOLUTE GRANULOCYTE CT 6.1 /CUMM (1.4-6.5); ABSOLUTE LYMPH COUNT 1.5 /CUMM (1.2-3.4); ABSOLUTE MONOCYTE COUNT 0.8 /CUMM (0.10-0.60); BASOPHIL % 0.3 % (0.0-2.0); EOSINOPHIL % 2.4 % (0-5); GRANULOCYTE % 70.6 % (42.2-75.2); HEMATOCRIT 42.3 % (42-52); MEAN CORPUSCULAR HGB 29.5 PG (27.0-31.0); MEAN CORPUSCULAR HGB CONC 33.7 G/DL (33.0-37.0); MEAN CORPUSCULAR VOLUME 87.5 FL (80.0-94.0); MEAN PLATELET VOLUME 10.3 FL (7.4-10.4); PLATELET COUNT 198 /CUMM (130-400); RBC DISTRIBUTION WIDTH 13.5 % (11.5-14.5); RED BLOOD CELL CT 4.84 /CUMM (4.70-6.10); WHITE BLOOD CELL COUNT 8.6 /CUMM (4.8-10.8)
--- NOTE | 2016-06-17 10:15 | PN- Housestaff ---
LAMONT TELLEZ,CARLOS 06/17/16 1015: Subjective Follow-up For: Paroxysmal atrial fibrillation Left shoulder pain Tele-Events Since Last Visit: Heart rate 60 to 70s. patient in A. fib. No overnight events noted. Subjective: Patient was seen at bedside. He was sitting in the chair with no acute distress. was present in the room Denies chest pain, palpitations, shortness of breath, leg pain. He was transitioned to by mouth anticoagulation yesterday and tolerated medication well. Able to answer questions appropriately. Review of Systems Constitutional: Reports: see HPI. Objective Last 24 Hrs of Vital Signs/I&O Vital Signs Date Time Temp Pulse Resp B/P Pulse O2 O2 Flow FiO2 Ox Delivery Rate 06/17 0802 98.7 74 20 108/60 98 Room Air 06/16 2312 98.2 80 20 106/72 92 Room Air 06/16 1616 100.4 98 20 102/66 90 Room Air Intake & Output 06/17 1600 06/17 0800 06/17 0000 Intake Total 440 240 739.2 Output Total 425 425 Balance 440 -185 314.2 Intake, IV 259.2 Intake, Oral 440 240 480 Number 1 Bowel Movements Output, Urine 425 425 Physical Exam General Appearance: Alert, Oriented X3, Cooperative, No Acute Distress Cardiovascular: irregular, 3/6 systolic murmur present in the parasternal area Lungs: Clear to Auscultation Abdomen: Normal Bowel Sounds, Soft, No Tenderness Neurological: Normal Speech Extremities: No Clubbing, No Cyanosis, No Edema Current Medications: Current Medications Sig/Eagle Start time Last Medication Dose Route Stop Time Status Admin Acetaminophen 650 MG Q6P PRN 06/15 0115 AC 06/15 PO 0950 Acetaminophen 1,000 MG Q6P PRN 06/15 0115 AC IV Ceftriaxone Sodium 1,000 MG DAILY 06/16 0915 AC 06/17 IV 0918 Dabigatran 150 MG BID 06/16 2200 AC 06/17 PO 0918 Diltiazem HCl 120 MG DAILY 06/16 1230 AC 06/17 PO 0918 Donepezil HCl 10 MG DAILY 06/15 1000 AC 06/17 PO 0918 Heparin Sodium/ 25,000 UNIT Q24 06/14 2345 DC 06/16 Dextrose IV 06/17 0000 1430 Dextrose/Water 500 ML Lisinopril 20 MG DAILY 06/15 1000 DC 06/16 PO 1104 Morphine Sulfate 2 MG Q8P PRN 06/15 0115 AC IV Multi-Ingred Cream/ 1 DARNELL TID 06/15 1600 AC 06/16 Lotion/Oil/Oint EXT 1105 Last 24 Hrs of Lab/Yamil Results Last 24 Hrs of Labs/Mics: Laboratory Tests 06/17/16 0730: Anion Gap 8, Estimated GFR > 60, BUN/Creatinine Ratio 15.6, CBC w Diff NO MAN DIFF REQ, RBC 4.84, MCV 87.5, MCH 29.5, RDW 13.5, MPV 10.3, Gran % 70.6, Lymphocytes % 16.9 L, Monocytes % 9.8 H, Eosinophils % 2.4, Basophils % 0.3, Absolute Granulocytes 6.1, Absolute Lymphocytes 1.5, Absolute Monocytes 0.8 H, Absolute Eosinophils 0.2, Absolute Basophils 0, PUBS MCHC 33.7 06/16/16 2300: APTT Cancelled Assessment/Plan Assessment: Patient is an 81-year-old male with significant past medical history of dementia , hypertension, presented to the ED with left shoulder pain. History was taken from the as the patient is having baseline dementia. Problem list - 1. Paroxysmal/new onset atrial fibrillation of unclear duration was on IV heparin currently transitioned to by mouth medications pradaxa - Rate appears controlled with Cardizem. 2. Confusion: - Could be secondary to urinary tract infection. - Currently on day 2 of ceftriaxone( urine culture positive for Escherichia coli ) - Transitioned to by mouth tomorrow to complete a total course of 5 days. - She has been afebrile. Had a one-time temperature of 100.4 yesterday - If patient remained afebrile and improved mentation we will treat him as lower urinary tract infection. 3. Hypertension: Blood pressure was borderline low. - Per cardiology recommendation lisinopril was held with history of and normal left ventricular ejection fraction - Amlodipine was stopped as he was started on Cardizem 4. Left shoulder injury with evidence of chronic rotator cuff improved * Continue morphine 2 mg every 8 when necessary IV * Continue acetaminophen 1000 mg every 6 IV when necessary * Continue acetaminophen 650 every 6 when necessary by mouth -Continue lisinopril/amlodipine/donepezil/melatonin -Diet-heart healthy diet -DVT prophylaxis-ALP S/Heparin bdrip -CODE STATUS-full code He was seen by physical therapy recommended short-term rehabilitation. patient and his insisted that they want to go back home. Will start physical therapy to reevaluate and give recommendations. Discussed with case management in AM if patient can be offered home physical therapy Problem List: 1. UTI (urinary tract infection) 2. Dementia 3. Hypertension 4. Left shoulder strain 5. New onset a-fib Pain Ratin Pain Location: left shoulder Pain Goal: Remain pain free Pain Plan: as mentioned with pain meds Tomorrow's Labs & Rationales: not needed ROBYN TELLEZ,[facility] 06/17/16 1738: Attending MD Review Statement Attending Statement Attending MD Statement: examined this patient, discuss w/resident/PA/PACK TRAIN DRIVER, reviewed EMR data (avail), reviewed images, amended to note (SEE MY NOTE)
[2016-06-17 16:00] VITALS: BP 106/62
--- NOTE | 2016-06-17 17:40 | PN- Att Addend ---
Attending Addendum Attending Brief Note Laboratory Tests 06/17/16 0730: Anion Gap 8, Estimated GFR > 60, BUN/Creatinine Ratio 15.6, CBC w Diff NO MAN DIFF REQ, RBC 4.84, MCV 87.5, MCH 29.5, RDW 13.5, MPV 10.3, Gran % 70.6, Lymphocytes % 16.9 L, Monocytes % 9.8 H, Eosinophils % 2.4, Basophils % 0.3, Absolute Granulocytes 6.1, Absolute Lymphocytes 1.5, Absolute Monocytes 0.8 H, Absolute Eosinophils 0.2, Absolute Basophils 0, PUBS MCHC 33.7 06/16/16 2300: APTT Cancelled Vital Signs Date Time Temp Pulse Resp B/P Pulse O2 O2 Flow FiO2 Ox Delivery Rate 06/17 1600 Room Air 06/17 1600 98.2 68 20 106/62 94 Room Air 06/17 0802 98.7 74 20 108/60 98 Room Air 06/16 2312 98.2 80 20 106/72 92 Room Air Assessment/plan: 1. Atrial fibrillation of unclear duration 2. Left shoulder discomfort, likely related to rotator cuff issues, improved 3. Elevated proBNP with central vascular congestion noted on chest x-ray 4. Hypertension 5. Severe 6. Dementia 7. UTI Discussed with the patient's again today. Discussed with the housestaff team. Will continue Abx tx for UTI given + UA/UCx with some delerium. His mental status is improved today. Can likely transitioned to oral antibiotics tomorrow. Heart rate is currently well controlled on the oral Cardizem. I stopped his KD inhibitor due to borderline blood pressure with severe . We have transitioned him to oral Pradaxa. Hg grossly stable. Follow-up PT evaluation and discuss with case management, may need STR? Greg Martini MD [facility]
[2016-06-18 00:04] VITALS: BP 108/70
--- NOTE | 2016-06-18 08:02 | PN- Housestaff ---
Subjective Follow-up For: Shoulder pain No onset of A. fib Subjective: Patient seen and examined at bedside. Pt does report one episode of loose stool but denies any foul odor or blood in stool. He does not endorse any other complaint including chest pain, palpitation, shortness of breath, dizziness, abdominal pain or dysuria. No acute overnight event reported by nursing staff. Review of Systems Constitutional: Reports: see HPI. Objective Last 24 Hrs of Vital Signs/I&O Vital Signs Date Time Temp Pulse Resp B/P Pulse O2 O2 Flow FiO2 Ox Delivery Rate 06/18 0004 98.5 96 20 108/70 93 06/17 1600 Room Air 06/17 1600 98.2 68 20 106/62 94 Room Air 06/17 0802 98.7 74 20 108/60 98 Room Air Intake & Output 06/18 1600 06/18 0800 06/18 0000 Intake Total 240 640 Output Total 300 Balance -60 640 Intake, Oral 240 640 Number 1 3 Bowel Movements Output, Urine 300 Physical Exam General Appearance: Alert, Oriented X3, Cooperative Other Physical Findings: Cardiovascular: irregular, 3/6 systolic murmur Lungs: Clear to Auscultation Abdomen: Normal Bowel Sounds, Soft, No Tenderness Neurological: Normal Speech Extremities: No Clubbing, No Cyanosis, No Edema Current Medications: Current Medications Sig/Eagle Start time Last Medication Dose Route Stop Time Status Admin Acetaminophen 650 MG Q6P PRN 06/15 0115 AC 06/15 PO 0950 Acetaminophen 1,000 MG Q6P PRN 06/15 011 AC IV Ceftriaxone Sodium 1,000 MG DAILY 06/16 0915 AC 06/17 IV 0918 Dabigatran 150 MG BID 06/16 2200 AC 06/17 PO 2002 Diltiazem HCl 120 MG DAILY 06/16 1230 AC 06/17 PO 0918 Donepezil HCl 10 MG DAILY 06/15 1000 AC 06/17 PO 0918 Morphine Sulfate 2 MG Q8P PRN 06/15 0115 AC IV Multi-Ingred Cream/ 1 DARNELL TID 06/15 1600 AC 06/16 Lotion/Oil/Oint EXT 1105 Assessment/Plan Assessment: Patient is an 81-year-old male with significant past medical history of dementia , hypertension, presented to the ED with left shoulder pain. History was taken from the as the patient is having baseline dementia. Problem list - 1. Paroxysmal/new onset atrial fibrillation of unclear duration was on IV heparin currently transitioned to by mouth medications pradaxa - Rate appears controlled with Cardizem. 2. AMS - Could be secondary to urinary tract infection. - Currently on day 2 of ceftriaxone( urine culture positive for Escherichia coli ) - Transitioned to by Cipro by mouth today to complete a total course of 5 days. - 3. Hypertension: Blood pressure was borderline low. - Per cardiology recommendation lisinopril was held with history of and normal left ventricular ejection fraction - Amlodipine was stopped as he was started on Cardizem 4. Left shoulder injury with evidence of chronic rotator cuff improved * Continue morphine 2 mg every 8 when necessary IV * Continue acetaminophen 1000 mg every 6 IV when necessary * Continue acetaminophen 650 every 6 when necessary by mouth -Continue lisinopril/amlodipine/donepezil/melatonin -Diet-heart healthy diet -DVT prophylaxis-ALP S/Heparin bdrip -CODE STATUS-full code He was seen by physical therapy recommended short-term rehabilitation. patient and his insisted that they want to go back home. Cardiology cleared patient for discharge patient schedule for home discharge today. Problem List: 1. New onset a-fib 2. Left shoulder strain Pain Ratin Pain Location: shoulder L Pain Goal: Pain 4 or less Pain Plan: apap for mild oxycodone for moderate Morphine for severe Tomorrow's Labs & Rationales: none:discharge
[2016-06-18 09:00] VITALS: BP 120/64
[2016-06-18] MEDS ORDERED: DILTIAZEM ER120 M2 PO (09:42)
[2016-06-18] MEDS ORDERED: CIPRO500 M1 PO (09:44)
--- NOTE | 2016-06-18 10:55 | PN- Cardiology ---
Subjective Subjective: Feeling well. No chest pain. No palpitations. No diaphoresis. No shortness of breath. No lightheadedness or dizziness. No syncope. Objective Vital Signs and I&Os Vital Signs Date Time Temp Pulse Resp B/P Pulse O2 O2 Flow FiO2 Ox Delivery Rate 06/18 0900 98.3 85 20 120/64 92 Room Air 06/18 0004 98.5 96 20 108/70 93 06/17 1600 Room Air 06/17 1600 98.2 68 20 106/62 94 Room Air Intake & Output 06/18 0800 06/18 0000 06/17 0806/17 0000 Intake Total 240 640 440 240 739.2 Output Total 300 425 425 Balance -60 640 440 -185 314.2 Intake, IV 259.2 Intake, Oral 240 640 440 240 480 Number 1 3 1 Bowel Movements Output, Urine 300 425 425 Physical Exam: Gen: NAD HEENT: normal Lungs: clear to auscultation, normal resp. effort Heart: Irregularly irregular, S1, S2, 1/6 systolic murmur Abdomen: Soft, nontender, no masses Extremities: No clubbing, cyanosis, or edema. Neuro: Alert and oriented x 3, cranial nerves intact Current Medications: Current Medications Sig/Eagle Start time Last Medication Dose Route Stop Time Status Admin Acetaminophen 650 MG Q6P PRN 06/15 0115 AC 06/15 PO 0950 Acetaminophen 1,000 MG Q6P PRN 06/15 011 IV Ceftriaxone Sodium 1,000 MG DAILY 06/16 0915 AC 06/18 IV 0901 Dabigatran 150 MG BID 06/16 2200 AC 06/18 PO 0901 Diltiazem HCl 120 MG DAILY 06/16 1230 AC 06/18 PO 0901 Donepezil HCl 10 MG DAILY 06/15 1000 AC 06/18 PO 0901 Morphine Sulfate 2 MG Q8P PRN 06/155 IV Multi-Ingred Cream/ 1 DARNELL TID 06/15 1600 AC 06/16 Lotion/Oil/Oint EXT 1105 Results Last 48 Hrs of Labs/Mics: Laboratory Tests 06/17/16 0730: Anion Gap 8, Estimated GFR > 60, BUN/Creatinine Ratio 15.6, CBC w Diff NO MAN DIFF REQ, RBC 4.84, MCV 87.5, MCH 29.5, RDW 13.5, MPV 10.3, Gran % 70.6, Lymphocytes % 16.9 L, Monocytes % 9.8 H, Eosinophils % 2.4, Basophils % 0.3, Absolute Granulocytes 6.1, Absolute Lymphocytes 1.5, Absolute Monocytes 0.8 H, Absolute Eosinophils 0.2, Absolute Basophils 0, PUBS MCHC 33.7 06/16/16 2300: APTT Cancelled Assessment/Plan Assessment/Plan Assessment: 1. Urinary tract infection, with culture positive for Enterobacter 2. Atrial fibrillation, new onset. Anticoagulated on Pradaxa. Rate under control on diltiazem. 3. Severe aortic stenosis Plan: * Discharge to home. The patient declines STR. * Continue Pradaxa for anticoagulation and diltiazem for rate control * Continue oral antibiotic therapy for urinary tract infection * Follow up in the office with Dr. Long in one week. * Follow up with primary care physician in one week. Continue telemetry? No
[2016-06-18] MEDS ORDERED: PRADAXA150 M1 PO ×2 (11:08→11:10)
== END 2016-06-18 15:15 | disposition home health service (06) | DRG 309 ==
LOC: ENRESERVTM → ENRESERVDT → ERH 21:08 → ERHI 23:30 → 1NO 23:30 → ENPENDDIS 23:30 → 1NO 23:30
PROVIDERS: Dermatology; Physician Assistant Medical; Student in an Organized Health Care Education/Training Program; ADMIT Internal Medicine Cardiovascular Disease
DX: I48.91 Unspecified atrial fibrillation (principal); N39.0 Urinary tract infection, site not specified; F03.90 Unspecified dementia, unspecified severity, without behavioral disturbance, psychotic disturbance, mood disturbance, and anxiety; M25.512 Pain in left shoulder; R32 Unspecified urinary incontinence; I10 Essential (primary) hypertension; Z87.891 Personal history of nicotine dependence; B96.89 Other specified bacterial agents as the cause of diseases classified elsewhere; I35.0 Nonrheumatic aortic (valve) stenosis
CPT/HCPCS: 1NP; ERO; 36415; 73030-LT; 81001; 82436; 87086; 93005; 93010; 93306; 96372; 96374; 97116-GO; 97162-GP; 97530-GO; J0696; J1630; J1644; J2060; J3490; J7060